=== PATIENT | male | born 1975 | race Native Hawaiian/Other Pacific Islander ===

== ENCOUNTER 2022-02-07 12:00 | Emergency (ER) | payer SELFPAY ==
[~2022-02-07] VITALS: Ht 167.6 cm; Wt 70.3 kg
[2022-02-07 12:06] VITALS: BP 124/70
--- NOTE | 2022-02-07 12:42 | NUR ---
PT C/O RIGHT SIDED CHEST PAIN SINCE LAST NIGHT WORSE ON PALPATION. PMH: DENIES
[2022-02-07 13:59] VITALS: BP 122/80
--- NOTE | 2022-02-07 14:00 | NUR ---
Patient discharged with v/s stable. Written and verbal after care instructions given and explained. Patient verbalized understanding. Ambulatory with steady gait. All questions addressed prior to discharge. Advised to follow up with PMD.
== END 2022-02-07 14:00 | disposition home or self-care (01) ==
LOC: MED 12:00
DX: R07.89 Other chest pain (principal)
CPT/HCPCS: 71045; 93005; 99283; Q0092